=== PATIENT | male | born 1930 | race Caucasian/White ===

== ENCOUNTER 2019-11-21 06:35 | Emergency (ER) | payer MEDICARE, BC ==
--- NOTE | 2019-11-21 07:25 | EDM.PDOC ---
<WileyJames D - Last Filed: 11/21/19 08:27> ED HPI GENERAL MEDICAL PROBLEM - General Chief Complaint: General Stated Complaint: L facial/body numbness Time Seen by Provider: 11/21/19 07:00 Source of Information: Reports: Patient History Limitations: Reports: No Limitations - History of Present Illness INITIAL COMMENTS - FREE TEXT/NARRATIVE: Patient presents with pain that started in left oriental orthodox, extending around left ear and down left cheek, face, neck, left anterior chest to upper left abdomen. It awoke him at 0300 this morning (about 4 hours ago) and was new today. For the past two months he has had a slowly worsening hoarseness/restriction in his throat and feeling of something constricting around his neck. He says he had [place] Palsy on the right side several years ago but this doesn't feel very much like that. Five years ago he had [place] and CABG. 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 Left Face/Facial Pain Score (Numeric/FACES): 6 - Related Data Allergies Allergy/AdvReac Type Severity Reaction Status Date / Time No Known Drug Allergies Allergy Cannot Verified 11/21/19 06:55 Remember Home Meds: Home Meds Allopurinol [Zyloprim] 200 mg PO DAILY 11/21/19 [History] Aspirin [Halfprin] 81 mg PO DAILY 11/21/19 [History] FLUoxetine HCl [Prozac] 20 mg PO DAILY 11/21/19 [History] Fluticasone Propionate [Flonase] 1 spray BOOM DAILY 11/21/19 [History] LORazepam [Ativan] 0.25 mg PO BID PRN 11/21/19 [History] Meloxicam [Mobic] 7.5 mg PO DAILY 11/21/19 [History] Metoprolol Tartrate [Lopressor] 12.5 mg PO BID 11/21/19 [History] Multivit,Calc,Mins/Iron/Folic [Thera-M] 1 tab PO DAILY 11/21/19 [History] Naproxen Sodium [Aleve] 220 mg PO BID PRN 11/21/19 [History] Pravastatin [Pravachol] 10 mg PO DAILY 11/21/19 [History] miSOPROStoL [Misoprostol] 200 mg PO DAILY 11/21/19 [History] ED ROS GENERAL - Review of Systems Review Of Systems: See Below Constitutional: Denies: Fever, Chills, Malaise, Weakness HEENT: Denies: Ear Pain, Hearing Loss, Vision Change Respiratory: Reports: Shortness of Breath (with activity; slowly worsening over the past several weeks). Denies: Cough Cardiovascular: Reports: Chest Pain (radiating from left oriental orthodox (see HPI)). Denies: Lightheadedness, Syncope GI/Abdominal: Denies: Abdominal Pain, Diarrhea, Vomiting : Reports: No Symptoms Musculoskeletal: Reports: Neck Pain, Other (has had some chronic intermittent tingling of left arm and shoulder) Skin: Denies: Cyanosis, Jaundice, Mottled, Pallor, Diaphoresis Neurological: Reports: Headache (this morning but the headache part of the symptoms is better). Denies: Confusion, Dizziness, Seizure, Syncope, Trouble Speaking, Difficulty Walking Psychiatric: Denies: Agitation, Anxiety, Confusion ED EXAM, GENERAL - Physical Exam Exam: See Below Exam Limited By: No Limitations General Appearance: Alert, WD/WN, No Apparent Distress Eye Exam: Bilateral Eye: EOMI, Normal Inspection (full visual el bilat), PERRL Ears: Normal External Exam, Hearing Grossly Normal Nose: Normal Inspection, No Blood Throat/Mouth: Normal Inspection, Normal Lips, Normal Voice, No Airway Compromise , Other (tender to palpation of left oriental orthodox, cheek and preauricular regions) Head: Atraumatic, Normocephalic Neck: Normal Inspection. No: Carotid Bruit Respiratory/Chest: No Respiratory Distress, Lungs Clear, Normal Breath Sounds, No Accessory Muscle Use, Other (tender to palpation nonfocally left anterior). No: Crackles, Rales, Rhonchi, Wheezing, Stridor Cardiovascular: Regular Rate, Rhythm, Systolic Murmur GI/Abdominal: Normal Bowel Sounds, Soft, Non-Tender, No Organomegaly Back Exam: Normal Inspection, Full Range of Motion. No: CVA Tenderness (L), CVA Tenderness (R) Extremities: Normal Inspection, Normal Range of Motion, Other (5/5 symmetric strength of hand pullman conductor, arms, straight-leg raise, plantar/dorsiflexion) Neurological: Alert, Oriented, CN II-XII Intact, Normal Cognition, No Motor/ Sensory Deficits Psychiatric: Normal Affect, Normal Mood Skin Exam: Warm, Dry, Intact, Normal Color, No Rash Course - Vital Signs Last Recorded V/S: Last Vital Signs Temp 98 F 11/21/19 09:26 Pulse 71 11/21/19 09:26 Resp 17 11/21/19 09:26 BP 142/81 H 11/21/19 09:26 Pulse Ox 96 11/21/19 09:26 - Orders/Labs/Meds Orders: Active Orders 24 hr Category Date Time Status Sodium Chloride 0.9% [Normal Saline] 1,000 ml Med 11/21/19 09:30 Active IV ASDIRECTED Medication Orders Sodium Chloride (Normal Saline) 1,000 mls @ 50 mls/hr IV ASDIRECTED LARRY Stop: 11/25/19 09:27 Last Admin: 11/21/19 09:28 Dose: 50 mls/hr Labs: Laboratory Tests 11/21/19 11/21/19 11/21/19 Range/Units 07:20 07:30 07:30 WBC 9.33 (5.00-10.00) 10^3/uL RBC 4.76 (4.50-6.00) 10^6/uL Hgb 14.4 (13.0-17.0) g/dL Hct 44.4 (40.0-52.0) % MCV 93.3 H (82.0-92.0) fL MCH 30.3 (27.0-31.0) pg MCHC 32.4 (32.0-36.0) g/dL RDW 13.6 (11.5-14.5) % Plt Count 242 (150-400) 10^3/uL MPV 9.9 (7.4-10.4) fL Immature Gran % (Auto) 0.3 (0.0-5.0) % Neut % (Auto) 70.6 H (50.0-70.0) % Lymph % (Auto) 17.0 L (20.0-40.0) % [place] % (Auto) 8.9 H (2.0-8.0) % Eos % (Auto) 2.8 (1.0-3.0) % Baso % (Auto) 0.4 (0.0-1.0) % Neut # (Auto) 6.58 (2.50-7.00) 10^3/uL Lymph # (Auto) 1.59 (1.00-4.00) 10^3/uL [place] # (Auto) 0.83 H (0.10-0.80) 10^3/uL Eos # (Auto) 0.26 (0.10-0.30) 10^3/uL Baso # (Auto) 0.04 (0.00-0.10) 10^3/uL Immature Gran # (Auto) 0.03 (0.00-0.50) 10^3/uL ESR 7 (0-15) mm/hr Sodium 139 (136-145) mmol/L Potassium 4.0 (3.3-5.3) mmol/L Chloride 104 (98-115) mmol/L Carbon Dioxide 23.0 (21.0-32.0) mmol/L Anion Gap 16.0 H (5-15) mmol/L BUN 28 H (6-25) mg/dL Creatinine 1.28 H (0.51-1.17) mg/dL Est Cr Clr Drug Dosing 40.66 mL/min Estimated GFR (MDRD) 53 mL/min Glucose 150 H (75 - 99) mg/dL Calcium 8.3 L (8.7-10.3) mg/dL Troponin I 0.10 H* (0.00-0.070) ng/mL C-Reactive Protein 0.2 (0.0-0.9) mg/dL 11/21/19 Range/Units 10:30 WBC (5.00-10.00) 10^3/uL RBC (4.50-6.00) 10^6/uL Hgb (13.0-17.0) g/dL Hct (40.0-52.0) % MCV (82.0-92.0) fL MCH (27.0-31.0) pg MCHC (32.0-36.0) g/dL RDW (11.5-14.5) % Plt Count (150-400) 10^3/uL MPV (7.4-10.4) fL Immature Gran % (Auto) (0.0-5.0) % Neut % (Auto) (50.0-70.0) % Lymph % (Auto) (20.0-40.0) % [place] % (Auto) (2.0-8.0) % Eos % (Auto) (1.0-3.0) % Baso % (Auto) (0.0-1.0) % Neut # (Auto) (2.50-7.00) 10^3/uL Lymph # (Auto) (1.00-4.00) 10^3/uL [place] # (Auto) (0.10-0.80) 10^3/uL Eos # (Auto) (0.10-0.30) 10^3/uL Baso # (Auto) (0.00-0.10) 10^3/uL Immature Gran # (Auto) (0.00-0.50) 10^3/uL ESR (0-15) mm/hr Sodium (136-145) mmol/L Potassium (3.3-5.3) mmol/L Chloride (98-115) mmol/L Carbon Dioxide (21.0-32.0) mmol/L Anion Gap (5-15) mmol/L BUN (6-25) mg/dL Creatinine (0.51-1.17) mg/dL Est Cr Clr Drug Dosing mL/min Estimated GFR (MDRD) mL/min Glucose (75 - 99) mg/dL Calcium (8.7-10.3) mg/dL Troponin I 0.11 H* (0.00-0.070) ng/mL C-Reactive Protein (0.0-0.9) mg/dL Meds: Medications Generic Name Dose Route Start Last Admin Trade Name Freq PRN Reason Stop Dose Admin Sodium Chloride 1,000 mls @ 50 mls/hr 11/21/19 09:30 11/21/19 09:28 Normal Saline IV 11/25/19 09:27 50 mls/hr ASDIRECTED LARRY Administration Discontinued Medications Generic Name Dose Route Start Last Admin Trade Name Freq PRN Reason Stop Dose Admin Aspirin 324 mg 11/21/19 08:12 11/21/19 08:14 Aspirin PO 11/21/19 08:13 324 mg ONETIME ONE Administration Aspirin Confirm 11/21/19 08:13 11/21/19 08:51 Aspirin Administered 11/21/19 08:14 Not Given Dose 324 mg .ROUTE .STK-MED ONE Sodium Chloride Confirm 11/21/19 09:09 11/21/19 09:29 Normal Saline Administered 11/21/19 09:10 Not Given Dose 1,000 mls @ as directed .ROUTE .STK-MED ONE - Re-Assessments/Exams Free Text/Narrative Re-Assessment/Exam: 11/21/19 08:13 Lab just called with troponin of 0.10. Patient says this doesn't feel very much like his past [place] and he isn't having any chest pain but he did have some pain and tightness in his chest this morning while he was in the shower before coming to ER. EKG is okay. CRP normal. 11/21/19 08:[address] Kerr, hospitalist at [facility], who accepted for transfer, however they tell me that there may be a delay for bed availability and we need to wait for the call. Dr. Kerr advised nothing besides the aspirin at this time but should start a heparin drip if he has chest pain or a serial troponin (at 3 hours) is trending up. Handing patient over to MARLENY Yarbrough at this time. Departure - Departure Disposition: DC/Tfer to Acute Hospital 02 Condition: Good Clinical Impression: Elevated troponin, Temporal pain, Neck pain - Discharge Information Referrals: Iona Jones PA-C [Primary Care Provider] - Forms: ED Department Discharge Sepsis Event Note - Evaluation Sepsis Screening Result: No Definite Risk - Focused Exam Vital Signs: Vital Signs Temp Pulse Resp BP Pulse Ox 11/21/19 09:26 98 F 71 17 142/81 H 96 11/21/19 06:51 97.7 F 69 18 141/67 H 94 L Date Exam was Performed: 11/21/19 Time Exam was Performed: 08:27 <Cuate Michael D - Last Filed: 11/21/19 12:05> ED EXAM, GENERAL - Physical Exam Exam: See Below Exam Limited By: No Limitations General Appearance: Alert, WD/WN, No Apparent Distress Nose: Normal Inspection Throat/Mouth: Normal Inspection, Normal Lips, Normal Voice, No Airway Compromise Head: Atraumatic, Normocephalic Neck: Normal Inspection, Supple, Non-Tender Respiratory/Chest: No Respiratory Distress, Lungs Clear, Normal Breath Sounds Cardiovascular: Regular Rate, Rhythm GI/Abdominal: Soft Back Exam: Normal Inspection Extremities: Normal Inspection Neurological: Alert, Oriented, No Motor/Sensory Deficits Psychiatric: Normal Affect, Normal Mood Skin Exam: Warm, Dry, Intact Lymphatic: No Adenopathy Course - Re-Assessments/Exams Free Text/Narrative Re-Assessment/Exam: 11/21/19 11:28 Patient continues to report that he feels quite well is not experiencing significant chest pain at this time. I did repeat his troponin 3 hours after initial and troponin is 0.11. Unchanged from prior. CT scans of the head and neck are unremarkable for any mass or tumor. Patient now has a room available and will continue to proceed with transfer to [facility]. Departure - Departure Time of Disposition: 11:45 Condition: Good Sepsis Event Note - Focused Exam Date Exam was Performed: 11/21/19 Time Exam was Performed: 12:02 - Assessment/Plan Assessment:: Mild troponin elevation. History of prior CABG. History of aortic valve replacement.. Plan: Patient will be transferred by ground ambulance to [facility] in [place] for further workup. Patient in stable condition. Patient will likely need further workup involving carotid ultrasound.
[2019-11-21] MEDS ORDERED: Aspirin 81 MG Tab.Chew PO ONE (08:12)
[2019-11-21] MEDS ORDERED: Aspirin 81 MG Tab.Chew ONE (08:13)
[2019-11-21] MEDS ORDERED: Sodium Chloride 0.9% 1,000 ML ONE (09:09)
[2019-11-21] MEDS ORDERED: Sodium Chloride 0.9% 1,000 ML IV SCH (09:30)
--- NOTE | 2019-11-21 10:36 | CT ---
[id number] CT/CT Head WO IV EXAM: NONCONTRAST HEAD CT INDICATION: DIFFICULTY SWALLOWING FOR 1 MONTH. COMPARISON: August 31, 2006. DISCUSSION: Progression of mild to moderate generalized atrophy. Progression of mild to moderate multifocal white matter hypoattenuation is nonspecific, but generally ascribed to chronic small vessel ischemia. No mass effect or midline shift. No acute hemorrhage or extra-axial fluid collection. No acute territorial infarct is identified. A limited look at the orbits and paranasal sinuses is unremarkable. IMPRESSION: 1. No acute findings. Wade Camarena MD 11/21/19 1034 Thank you for allowing us to participate in the care of your patient.
--- NOTE | 2019-11-21 10:41 | CT ---
[id number] CT/CT Neck Soft Tissue WO IV EXAM: SOFT TISSUE NECK CT WITHOUT CONTRAST INDICATION: DIFFICULTY SWALLOWING FOR 1 MONTH. COMPARISON: None. DISCUSSION: The parotid, submandibular and thyroid glands are normal in appearance. Atherosclerotic plaque in the aorta and its major branches including the carotid arteries. The airway and digestive tract mucosa are unremarkable. No lymphadenopathy. The imaged skull base is unremarkable. There are changes of prior sternotomy. Partially calcified densities in the mediastinum along the left aspect of the main pulmonary artery and the ventral margin of the aorta may represent postsurgical material/fat necrosis, but are nonspecific. The imaged upper chest is otherwise unremarkable. Scattered degenerative changes in the spine. Slight C5-C6 spondylolisthesis. IMPRESSION: 1. No definite explanation for difficulty swallowing. Wade Camarena MD 11/21/19 1041 Thank you for allowing us to participate in the care of your patient.
== END 2019-11-21 11:55 ==
LOC: KA.ED 06:35
DX: R51 Headache (principal); M54.2 Cervicalgia; R79.89 Other specified abnormal findings of blood chemistry; Z79.82 Long term (current) use of aspirin; Z79.899 Other long term (current) drug therapy; Z95.1 Presence of aortocoronary bypass graft; Z95.4 Presence of other heart-valve replacement
CPT/HCPCS: 36415; 70450; 70490; 80048; 84484; 85025; 85651; 86140; 93005; 99285; A9270; J7030; 99284

== ENCOUNTER 2020-01-12 19:32 | Emergency (ER) | payer MEDICARE, BC ==
--- NOTE | 2020-01-12 20:02 | EDM.PDOC ---
ED HPI GENERAL MEDICAL PROBLEM - General Chief Complaint: Neuro Symptoms/Deficits Stated Complaint: NUMBNESS ON HIS FACE Time Seen by Provider: 01/12/20 19:40 Source of Information: Reports: Patient History Limitations: Reports: No Limitations - History of Present Illness INITIAL COMMENTS - FREE TEXT/NARRATIVE: Patient is an 89-year-old gentleman who presents to emergency department via private vehicle for complaint of numbness and tingling to his left episcopal, face and neck. Had similar symptoms one month ago, seen here in the emergency department, diagnosed with non-STEMI [place], and transferred to [facility]. At that time patient was found to have carotid stenosis and it was recommended that he have an endarterectomy. Patient is not scheduled for next vascular appoi ntment until February. Blockage was said to be 80% on the left and 50% on the right. Patient does have a history of coronary artery bypass surgery 7 years ago. At this time, patient's daughter is present and is also a good historian. She also thinks that it may be anxiety because her father has not been able to see his due to the Covid crisis. Patient denies chest pain, shortness of breath, nausea, vomiting, diarrhea, fever, covid exposure, syncope, dizziness, blurry vision, occult he swallowing, or neck stiffness. Onset: Today Onset Time: 15:00 Duration: Hour(s): Location: Reports: Head, Face Quality: Reports: Other Severity: Mild Improves with: Reports: None Worsens with: Reports: None Context: Denies: Trauma Associated Symptoms: Reports: No Other Symptoms. Denies: Chest Pain, Cough, Diaphoresis, Fever/Chills, Headaches, Nausea/Vomiting, Seizure, Shortness of Breath, Syncope - Related Data Allergies Allergy/AdvReac Type Severity Reaction Status Date / Time No Known Drug Allergies Allergy Cannot Verified 11/21/19 06:55 Remember Home Meds: Home Meds Allopurinol [Zyloprim] 200 mg PO DAILY 11/21/19 [History] Aspirin [Halfprin] 81 mg PO DAILY 11/21/19 [History] FLUoxetine HCl [Prozac] 20 mg PO DAILY 11/21/19 [History] Fluticasone Propionate [Flonase] 1 spray BOOM DAILY 11/21/19 [History] LORazepam [Ativan] 0.25 mg PO BID PRN 11/21/19 [History] Meloxicam [Mobic] 7.5 mg PO DAILY 11/21/19 [History] Metoprolol Tartrate [Lopressor] 12.5 mg PO BID 11/21/19 [History] Multivit,Calc,Mins/Iron/Folic [Thera-M] 1 tab PO DAILY 11/21/19 [History] Naproxen Sodium [Aleve] 220 mg PO BID PRN 11/21/19 [History] Pravastatin [Pravachol] 10 mg PO DAILY 11/21/19 [History] miSOPROStoL [Misoprostol] 200 mg PO DAILY 11/21/19 [History] Past Medical History HEENT History: Reports: Hard of Hearing 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 Respiratory History: Reports: None Genitourinary History: Reports: None, Other (See Below) Neurological History: Reports: None Psychiatric History: Reports: Anxiety, Depression Endocrine/Metabolic History: Reports: Diabetes, Type II, Obesity/BMI 30+ Oncologic (Cancer) History: Reports: None Dermatologic History: Reports: None - Infectious Disease History Infectious Disease History: Reports: None - Past Surgical History Cardiovascular Surgical History: Reports: Coronary Artery Bypass GI Surgical History: Reports: Appendectomy, Cholecystectomy, Other (See Below) Other GI Surgeries/Procedures: umbilibal hernia Musculoskeletal Surgical History: Reports: Knee Replacement Social & Family History - Caffeine Use Caffeine Use: Reports: Soda, Other ED ROS GENERAL - Review of Systems Review Of Systems: Comprehensive ROS is negative, except as noted in HPI. Constitutional: Reports: No Symptoms HEENT: Reports: No Symptoms Respiratory: Reports: No Symptoms Cardiovascular: Reports: No Symptoms Endocrine: Reports: No Symptoms GI/Abdominal: Reports: No Symptoms : Reports: No Symptoms Musculoskeletal: Reports: No Symptoms Skin: Reports: No Symptoms Neurological: Reports: Numbness (Left face) Psychiatric: Reports: Anxiety Hematologic/Lymphatic: Reports: No Symptoms Immunologic: Reports: No Symptoms ED EXAM, NEURO - Physical Exam Exam: See Below Exam Limited By: No Limitations General Appearance: Alert, WD/WN, No Apparent Distress, Anxious Eye Exam: Bilateral Eye: Normal Inspection Nose: Normal Inspection, Normal Mucosa, No Blood Throat/Mouth: Normal Inspection, Normal Oropharynx, No Airway Compromise Head Exam: Atraumatic, Normocephalic Neck: Normal Inspection, Supple, Non-Tender, Full Range of Motion Respiratory/Chest: No Respiratory Distress, Lungs Clear, Normal Breath Sounds, No Accessory Muscle Use, Chest Non-Tender Cardiovascular: Regular Rate, Rhythm, Systolic Murmur GI/Abdominal: Normal Bowel Sounds, Soft, Non-Tender, No Organomegaly, No Abnormal Bruit Neurological: Alert, Normal Mood/Affect, Normal Dorsiflexion, Normal Plantar Flexion, Oriented x 3, Abnormal Sensation (Left temporal and facial extending into left lateral neck). No: Abnormal Motor Back Exam: Normal Inspection Extremities: Normal Inspection, No Pedal Edema Psychiatric: Anxious Skin Exam: Warm, Dry, Intact, Normal Color, No Rash Course - Orders/Labs/Meds Orders: Active Orders 24 hr Category Date Time Status EKG Documentation Completion [RC] ASDIRECTED Care 01/12/20 19:50 Ordered EKG 12 Lead [EK] Stat Ther 01/12/20 19:48 Ordered Labs: Laboratory Tests 01/12/20 01/12/20 01/12/20 Range/Units 20:18 20:18 20:18 WBC 9.59 (5.00-10.00) 10^3/uL RBC 4.46 L (4.50-6.00) 10^6/uL Hgb 13.4 (13.0-17.0) g/dL Hct 41.7 (40.0-52.0) % MCV 93.5 H (82.0-92.0) fL MCH 30.0 (27.0-31.0) pg MCHC 32.1 (32.0-36.0) g/dL RDW 14.0 (11.5-14.5) % Plt Count 224 (150-400) 10^3/uL MPV 9.4 (7.4-10.4) fL Immature Gran % (Auto) 0.1 (0.0-5.0) % Neut % (Auto) 72.2 H (50.0-70.0) % Lymph % (Auto) 16.0 L (20.0-40.0) % [place] % (Auto) 8.1 H (2.0-8.0) % Eos % (Auto) 3.3 H (1.0-3.0) % Baso % (Auto) 0.3 (0.0-1.0) % Neut # (Auto) 6.92 (2.50-7.00) 10^3/uL Lymph # (Auto) 1.53 (1.00-4.00) 10^3/uL [place] # (Auto) 0.78 (0.10-0.80) 10^3/uL Eos # (Auto) 0.32 H (0.10-0.30) 10^3/uL Baso # (Auto) 0.03 (0.00-0.10) 10^3/uL Immature Gran # (Auto) 0.01 (0.00-0.50) 10^3/uL PT 9.7 (9.2-11.2) SEC INR 1.0 (0.9-1.1) APTT 26.1 (22.8-31.4) SEC Sodium 145 (136-145) mmol/L Potassium 4.1 (3.3-5.3) mmol/L Chloride 104 (98-115) mmol/L Carbon Dioxide 25.9 (21.0-32.0) mmol/L Anion Gap 19.2 H (5-15) mmol/L BUN 19 (6-25) mg/dL Creatinine 1.21 H (0.51-1.17) mg/dL Est Cr Clr Drug Dosing TNP Estimated GFR (MDRD) 57 mL/min Glucose 193 H (75 - 99) mg/dL Calcium 8.5 L (8.7-10.3) mg/dL Total Bilirubin 0.4 (0.2-1.0) mg/dL AST 20 (15-37) U/L ALT 28 (12-78) U/L Alkaline Phosphatase 86 (46-116) IU/L Troponin I 0.04 (0.00-0.070) ng/mL C-Reactive Protein 0.7 (0.0-0.9) mg/dL Total Protein 6.6 (6.4-8.2) g/dL Albumin 3.29 (3.00-4.80) g/dL - Radiology Interpretation Free Text/Narrative:: CT head without contrast shows no acute intracranial process - Re-Assessments/Exams Free Text/Narrative Re-Assessment/Exam: 01/12/20 21:33 Patient afebrile, vital signs stable, symptoms mostly resolved. Daughter at bedside. Discussed case with Mayda Botello, clinician from [place]. After discussion was felt patient would be allowed to go home this evening and follow- up at the clinic tomorrow. Departure - Departure Time of Disposition: 21:34 Disposition: Home, Self-Care 01 Condition: Good Clinical Impression: Temporal pain, Anxiety - Discharge Information Instructions: Generalized Anxiety Disorder, Adult Referrals: Alejandra Kruse MD [Primary Care Provider] - Forms: ED Department Discharge Additional Instructions: Follow-up tomorrow at [facility]. Return to emergency department sooner if symptoms continue or worsen. - My Orders Last 24 Hours: My Active Orders 01/12/20 19:48 EKG 12 Lead [EK] Stat 01/12/20 19:50 EKG Documentation Completion [RC] ASDIRECTED - Assessment/Plan Last 24 Hours: My Active Orders 01/12/20 19:48 EKG 12 Lead [EK] Stat 01/12/20 19:50 EKG Documentation Completion [RC] ASDIRECTED Assessment:: Anxiety
[2020-01-12 20:41] LABS: PTT,PARTIAL THROMBOPLSTIN TIME 26.1 SEC (22.8-31.4)
--- NOTE | 2020-01-12 20:41 | CT ---
[id number] CT/CT Head WO IV EXAM: CT Head WO IV CLINICAL DATA: FACIAL NUMBNESS COMPARISON STUDY: 11/21/2019. FINDINGS: No intracranial hemorrhage, extra-axial fluid collection, mass, or acute ischemia. Generalized parenchymal atrophy with scattered areas of nonspecific white matter disease, commonly seen as sequela of chronic microvascular ischemia. Soft tissues are unremarkable. Paranasal sinuses and mastoid air cells are clear. IMPRESSION: No acute intracranial findings. Kirill Savage DO 01/12/20 1039 Thank you for allowing us to participate in the care of your patient.
--- NOTE | 2020-01-12 20:42 | CR ---
[id number] RAD/RAD Chest PA or AP 1V EXAM: RAD Chest PA or AP 1V INDICATION: FACIAL NUMBNESS COMPARISON: None. DISCUSSION: Median sternotomy wires. Cardiomediastinal silhouette is stable in size and contour. No infiltrate, effusion, pneumothorax, or edema. IMPRESSION: No acute cardiopulmonary abnormality. Kirill Savage DO 01/12/20 2041 Thank you for allowing us to participate in the care of your patient.
[2020-01-12 20:49] LABS: ANION GAP 19.2 mmol/L (5-15); CHLORIDE,CL 104 mmol/L (98-115); SODIUM,NA 145 mmol/L (136-145)
== END 2020-01-12 21:50 | disposition home or self-care (01) ==
LOC: KA.ED 19:32
DX: R51 Headache (principal); F41.9 Anxiety disorder, unspecified; F32.9 Major depressive disorder, single episode, unspecified; E11.9 Type 2 diabetes mellitus without complications; E66.9 Obesity, unspecified; Z68.29 Body mass index [BMI] 29.0-29.9, adult; Z79.899 Other long term (current) drug therapy; Z79.82 Long term (current) use of aspirin
CPT/HCPCS: 36415; 70450; 71045; 80053; 84484; 85025; 85610; 85730; 86140; 93005; 99284; 99284-25

== ENCOUNTER 2020-09-03 08:29 | Emergency (ER) | payer MEDICARE, BC ==
--- NOTE | 2020-09-03 09:28 | EDM.PDOC ---
ED HPI GENERAL MEDICAL PROBLEM - General Chief Complaint: General Stated Complaint: RT LEG WEAKNESS, knee pain/swelling Time Seen by Provider: 09/03/20 09:00 Source of Information: Reports: Patient History Limitations: Reports: No Limitations - History of Present Illness INITIAL COMMENTS - FREE TEXT/NARRATIVE: 89-year-old male presents to the emergency room with complaints of right knee pain and swelling and difficulty weightbearing. He called the clinic this morning and told them he was experiencing weakness in his right leg and cannot walk and they were concerned that this might be possibly a stroke. He is not having any headache, difficulty with speech, no drooping of face no upper extremity or lower extremity weakness. He reports that he is having difficulty weightbearing due to the pain and swelling in his right knee. He has had his left knee replaced in the past by Dr. Monique is doing well. He has swelling in the right knee. It is painful to touch or move. He has not fallen. He was brought in by his sister for further evaluation. He denies any numbness or tingling complaints. No radicular pain. Onset Date: 09/02/20 Duration: Day(s):, Constant Location: Reports: Lower Extremity, Right Quality: Reports: Ache Severity: Moderate Improves with: Reports: Rest Worsens with: Reports: Movement Associated Symptoms: Denies: Confusion, Chest Pain, Headaches, Shortness of Breath, Weakness right leg Pain Score (Numeric/FACES): 7 - Related Data Allergies Allergy/AdvReac Type Severity Reaction Status Date / Time No Known Drug Allergies Allergy Cannot Verified 09/03/20 08:40 Remember Home Meds: Home Meds Allopurinol [Zyloprim] 200 mg PO DAILY 11/21/19 [History] FLUoxetine HCl [Prozac] 20 mg PO DAILY 11/21/19 [History] Fluticasone Propionate [Flonase] 1 spray BOOM DAILY 11/21/19 [History] LORazepam [Ativan] 0.25 mg PO BID PRN 11/21/19 [History] Metoprolol Tartrate [Lopressor] 25 mg PO BID 11/21/19 [History] Multivit,Calc,Mins/Iron/Folic [Thera-M] 1 tab PO DAILY 11/21/19 [History] Furosemide 20 mg PO DAILY PRN 01/13/20 [History] metFORMIN [Glucophage XR] 500 mg PO DAILY 01/13/20 [History] Aspirin 325 mg PO DAILY 09/03/20 [History] Rosuvastatin Calcium [Crestor] 40 mg PO DAILY 09/03/20 [History] Past Medical History HEENT History: Reports: Hard of Hearing 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 Other Cardiovascular History: Pt states last time he was hospitalized at [facility] 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, "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." Respiratory History: Reports: Other (See Below) Other Respiratory History: patient states chronic shortness of breath for the last 2 years Gastrointestinal History: Reports: None Genitourinary History: Reports: None, Other (See Below) Neurological History: Reports: None Psychiatric History: Reports: Anxiety, Depression Endocrine/Metabolic History: Reports: Diabetes, Type II, Obesity/BMI 30+ Hematologic History: Reports: None Immunologic History: Reports: None Oncologic (Cancer) History: Reports: None Dermatologic History: Reports: None - Infectious Disease History Infectious Disease History: Reports: None - Past Surgical History Cardiovascular Surgical History: Reports: Coronary Artery Bypass GI Surgical History: Reports: Appendectomy, Cholecystectomy, Other (See Below) Other GI Surgeries/Procedures: umbilibal hernia Musculoskeletal Surgical History: Reports: Knee Replacement Social & Family History - Tobacco Use Tobacco Use Status *Q: Never Tobacco User - Caffeine Use Caffeine Use: Reports: None - Recreational Drug Use Recreational Drug Use: No ED ROS GENERAL - Review of Systems Review Of Systems: See Below Constitutional: Reports: No Symptoms HEENT: Reports: No Symptoms Respiratory: Reports: No Symptoms Cardiovascular: Reports: No Symptoms Endocrine: Reports: No Symptoms GI/Abdominal: Reports: No Symptoms : Reports: No Symptoms Musculoskeletal: Reports: Joint Pain (right knee), Joint Swelling (right knee). Denies: Back Pain Skin: Reports: No Symptoms Neurological: Reports: No Symptoms ED EXAM, GENERAL - Physical Exam Exam: See Below Exam Limited By: No Limitations General Appearance: Alert, WD/WN, No Apparent Distress Ears: Hearing Grossly Normal Nose: Normal Inspection Throat/Mouth: Normal Voice, No Airway Compromise Head: Atraumatic, Normocephalic Neck: Normal Inspection Respiratory/Chest: No Respiratory Distress Cardiovascular: Normal Peripheral Pulses Peripheral Pulses: 1+: Dorsalis Pedis (R) Back Exam: Normal Inspection Extremities: Normal Capillary Refill, Joint Swelling (+1 effusion), Limited Range of Motion (0-125), Other (1+ effusion of the right knee passive motion is 0 to about 120 degrees. He has slight opening with valgus stress at 30 degrees of flexion. He has tenderness across the medial joint line. There is crepitation with gentle passive motion.) Neurological: Alert, Oriented, CN II-XII Intact, No Motor/Sensory Deficits, Abnormal Gait (Antalgic gait) Psychiatric: Normal Affect, Normal Mood Skin Exam: Warm, Dry, Intact, Normal Color, No Rash Lymphatic: No Adenopathy ED GENERAL MEDICAL PROCEDURES - Additional/Other Procedure(s) Other (Free Text) Procedure(s): Right knee was prepped with ChloraPrep. Right knee was then injected with a 21- gauge needle intra-articularly from the superior lateral capsule was injected with 40 mg of Kenalog and 5 cc of 1% Xylocaine without difficulty. Band-Aid was placed over the portal site patient tolerated procedure well. Course - Vital Signs Last Recorded V/S: Last Vital Signs Temp 97 F 09/03/20 09:47 Pulse 61 09/03/20 09:47 Resp 16 09/03/20 09:47 BP 149/61 H 09/03/20 09:47 Pulse Ox 95 09/03/20 09:47 - Orders/Labs/Meds Meds: Medications Discontinued Medications Generic Name Dose Route Start Last Admin Trade Name Marcia PRN Reason Stop Dose Admin Lidocaine HCl 5 ml 09/03/20 09:38 09/03/20 09:55 Lidocaine 1% 5 Ml Sdv INJECT 09/03/20 09:39 5 ml ONETIME ONE Administration Triamcinolone Acetonide 40 mg 09/03/20 09:37 09/03/20 09:55 Triamcinolone Acetonide 40 Mg/Ml 1 Ml Sdv INJECT 09/03/20 09:38 40 mg ONETIME ONE Administration - Radiology Interpretation Free Text/Narrative:: X-ray bilateral AP standing Findings: There is 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 There is soft tissue swelling consistent with a knee effusion. 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 Impression: As above - Re-Assessments/Exams Free Text/Narrative Re-Assessment/Exam: 09/03/20 10:02 Patient's knee was injected today with 5 cc of lidocaine and 40 of Kenalog after sterile prep. Patient tolerated procedure well. He already noticed improvement with his knee pain with the injection. Departure - Departure Time of Disposition: 10:20 Disposition: Home, Self-Care 01 Condition: Good Clinical Impression: Effusion of knee joint right Degenerative joint disease of right knee Qualifiers: Osteoarthritis type: primary Qualified Code(s): M17.11 - Unilateral primary osteoarthritis, right knee - Discharge Information Referrals: Alejandra Kruse MD [Primary Care Provider] - Forms: ED Department Discharge Sepsis Event Note (ED) - Evaluation Sepsis Screening Result: No Definite Risk - Focused Exam Vital Signs: Vital Signs Temp Pulse Resp BP Pulse Ox 09/03/20 09:47 97 F 61 16 149/61 H 95 09/03/20 09:19 97 F 59 L 16 116/69 96 09/03/20 09:04 60 16 114/63 95 09/03/20 08:46 62 16 124/59 L 94 L 09/03/20 08:34 97.2 F 67 16 172/91 H 97 - Assessment/Plan Assessment:: Right knee DJD with [id number] articulation medially Right knee effusion Left total knee arthroplasty Plan: 1. Knee was injected today with 40 of Kenalog and 5 cc of lidocaine. Patient tolerated seizure well and noticed immediate improvement with the knee injection. 2. He could have this repeated as early as 3 months if this is gives him good long-lasting relief.. 3. Patient could consider total knee arthroplasty for his end-stage osteoarthritis right knee for definitive management. 4. Recommend follow-up with orthopedics for further injections or to discuss surgical intervention for his right knee DJD.
--- NOTE | 2020-09-03 09:44 | CR ---
[id number] RAD/RAD Knee Bilateral Standing 1V Exam: RAD Knee Bilateral Standing 1V Clinical Data: KNEE PAIN COMPARISON: NO PREVIOUS SIMILAR EXAM IS AVAILABLE FINDINGS: Significant degenerative changes of the right knee are seen A left knee prosthesis is identified IMPRESSION: SIGNIFICANT DEGENERATIVE CHANGE ON RIGHT Arun Dunne MD 09/03/20 [id number] Thank you for allowing us to participate in the care of your patient.
[2020-09-03] MEDS: Triamcinolone Acetonide 40 MG/ML 1 ML SDV INJECT ONE (09:55)
== END 2020-09-03 10:20 | disposition home or self-care (01) ==
LOC: KA.ED 08:29
DX: M17.11 Unilateral primary osteoarthritis, right knee (principal); M25.461 Effusion, right knee; E11.9 Type 2 diabetes mellitus without complications; E66.9 Obesity, unspecified; Z68.30 Body mass index [BMI] 30.0-30.9, adult; Z79.84 Long term (current) use of oral hypoglycemic drugs; Z79.82 Long term (current) use of aspirin; Z79.899 Other long term (current) drug therapy
CPT/HCPCS: 20610; 73565; 82962; 99283; 99283-25; J3301

== ENCOUNTER 2021-08-12 17:29 | Inpatient (IN) | payer MEDICARE, BC ==
[2021-08-12] MEDS ORDERED: Sodium Chloride 0.9% 1,000 ML IV ONE (17:47)
[2021-08-12] MEDS ORDERED: Albuterol/Ipratropium 3.0-0.5 MG/3 ML Neb Soln NEB ONE (18:30)
[2021-08-12 19:22] LABS: ANION GAP 17.4 mmol/L (5-15)
[2021-08-12] MEDS ORDERED: Sodium Chloride 0.9% 1,000 ML IV SCH (22:15)
[2021-08-12] MEDS ORDERED: Fluticasone NASAL Spray 16 GM Bottle NAS PRN (22:26)
[2021-08-12] MEDS ORDERED: LORazepam 0.5 MG Tab PO PRN (22:27)
[2021-08-12] MEDS ORDERED: cefTRIAXone 2 GM Vial IVPUSH ONE (22:30)
[2021-08-12] MEDS: Sodium Chloride 0.9% 10 ML Syringe FLUSH PRN (22:39)
[2021-08-12] MEDS: Albuterol/Ipratropium 3.0-0.5 MG/3 ML Neb Soln NEB PRN (23:53)
[2021-08-13] MEDS: Albuterol/Ipratropium 3.0-0.5 MG/3 ML Neb Soln NEB PRN ×3 (06:30→21:30)
[2021-08-13] MEDS: guaiFENesin/Dextromethorphan 100-10 MG/5 ML Soln 5 ML Cup PO PRN (07:01)
[2021-08-13 07:58] LABS: ANION GAP 16.8 mmol/L (5-15)
[2021-08-13] MEDS ORDERED: Clopidogrel 75 MG Tab PO SCH (09:00)
[2021-08-13] MEDS ORDERED: Metoprolol Tartrate 25 MG Tab PO SCH (09:00)
[2021-08-13] MEDS ORDERED: Rosuvastatin 10 MG Tab PO SCH (09:00)
[2021-08-13] MEDS ORDERED: Allopurinol 100 MG Tab PO SCH (09:00)
[2021-08-13] MEDS ORDERED: FLUoxetine 10 MG Cap PO SCH (09:00)
[2021-08-13] MEDS: Azithromycin 500 MG in Sodium Chloride 0.9% 250 ML IV SCH (09:30)
[2021-08-13] MEDS: Aspirin 325 MG Tab.EC PO SCH (11:30)
[2021-08-13] MEDS: Lutein/Minerals/Vitamins A, C & E Tab PO SCH (11:30)
[2021-08-13] MEDS: ALLOPURINOL 100 MG PO SCH (11:31)
[2021-08-13] MEDS: FLUOXETINE 20 MG PO SCH (11:32)
[2021-08-13] MEDS: CLOPIDOGREL 75 MG PO SCH (11:32)
[2021-08-13] MEDS: ROSUVASTATIN 40 MG PO SCH (11:33)
[2021-08-13] MEDS: METOPROLOL TARTRATE 25 MG PO SCH ×2 (11:34→20:19)
[2021-08-13] MEDS ORDERED: Glucagon,Human Recombinant 1 MG Vial IM PRN (12:48)
[2021-08-13] MEDS ORDERED: 50% Dextrose in Water 50 ML Syringe IVPUSH PRN (12:48)
[2021-08-13] MEDS ORDERED: Insulin Lispro 100 Unit/ML 3 ML KwikPen SUBCUT SCH (18:00)
[2021-08-13] MEDS ORDERED: metFORMIN 500 MG Tab.ER PO SCH (18:00)
[2021-08-13] MEDS: METFORMIN 750 MG PO SCH (18:13)
[2021-08-13] MEDS: cefTRIAXone 2 GM Vial IVPUSH SCH (20:14)
[2021-08-13] MEDS ORDERED: Acetaminophen 325 MG Tab PO PRN (21:02)
[2021-08-14] MEDS: guaiFENesin/Dextromethorphan 100-10 MG/5 ML Soln 5 ML Cup PO PRN ×2 (01:04→21:48)
[2021-08-14] MEDS: Albuterol/Ipratropium 3.0-0.5 MG/3 ML Neb Soln NEB PRN (01:34)
[2021-08-14 07:49] LABS: ANION GAP 13.6 mmol/L (5-15)
[2021-08-14] MEDS: Aspirin 325 MG Tab.EC PO SCH (08:50)
[2021-08-14] MEDS: Azithromycin 500 MG in Sodium Chloride 0.9% 250 ML IV SCH (08:50)
[2021-08-14] MEDS: Lutein/Minerals/Vitamins A, C & E Tab PO SCH (08:50)
[2021-08-14] MEDS: Sodium Chloride 0.9% 50 ML IV SCH (08:59)
[2021-08-14] MEDS: CLOPIDOGREL 75 MG PO SCH (09:01)
[2021-08-14] MEDS: ROSUVASTATIN 40 MG PO SCH (09:01)
[2021-08-14] MEDS: ALLOPURINOL 100 MG PO SCH (09:01)
[2021-08-14] MEDS: FLUOXETINE 20 MG PO SCH (09:02)
[2021-08-14] MEDS: METFORMIN 750 MG PO SCH (09:02)
[2021-08-14] MEDS: METOPROLOL TARTRATE 25 MG PO SCH (09:03)
[2021-08-14] MEDS ORDERED: Albuterol 0.083% 2.5 MG/3 ML Neb Soln NEB PRN (10:41)
[2021-08-14] MEDS: predniSONE 20 MG Tab PO SCH (10:45)
[2021-08-14] MEDS: Albuterol/Ipratropium 3.0-0.5 MG/3 ML Neb Soln NEB SCH ×3 (10:46→21:51)
[2021-08-14] MEDS: Metoprolol Tartrate 25 MG Tab PO SCH (21:48)
[2021-08-14] MEDS: Sodium Chloride 0.9% 10 ML Syringe FLUSH PRN (21:52)
[2021-08-14] MEDS: cefTRIAXone 2 GM Vial IVPUSH SCH (21:53)
[2021-08-15] MEDS: Albuterol/Ipratropium 3.0-0.5 MG/3 ML Neb Soln NEB SCH ×6 (05:45→22:12)
[2021-08-15 07:56] LABS: ANION GAP 13.8 mmol/L (5-15)
[2021-08-15] MEDS: predniSONE 20 MG Tab PO SCH (07:58)
[2021-08-15] MEDS: guaiFENesin/Dextromethorphan 100-10 MG/5 ML Soln 5 ML Cup PO PRN (07:58)
[2021-08-15] MEDS ORDERED: Azithromycin 250 MG Tab PO ONE (08:00)
[2021-08-15] MEDS: Allopurinol 100 MG Tab PO SCH (08:00)
[2021-08-15] MEDS: Lutein/Minerals/Vitamins A, C & E Tab PO SCH (08:00)
[2021-08-15] MEDS: Metoprolol Tartrate 25 MG Tab PO SCH ×2 (08:00→21:41)
[2021-08-15] MEDS: FLUoxetine 10 MG Cap PO SCH (08:00)
[2021-08-15] MEDS: Clopidogrel 75 MG Tab PO SCH (08:00)
[2021-08-15] MEDS: Aspirin 325 MG Tab.EC PO SCH (08:00)
[2021-08-15] MEDS: Rosuvastatin 10 MG Tab PO SCH (08:01)
[2021-08-15] MEDS ORDERED: metFORMIN 500 MG Tab.ER PO SCH (09:00)
[2021-08-15] MEDS ORDERED: predniSONE 20 MG Tab PO SCH (10:45)
[2021-08-15] MEDS ORDERED: predniSONE 20 MG Tab PO ONE (11:00)
[2021-08-15] MEDS: cefTRIAXone 2 GM Vial IVPUSH SCH (21:41)
[2021-08-16] MEDS: Albuterol/Ipratropium 3.0-0.5 MG/3 ML Neb Soln NEB SCH ×3 (01:45→07:48)
[2021-08-16] MEDS ORDERED: predniSONE 20 MG Tab PO SCH (08:00)
[2021-08-16] MEDS ORDERED: Azithromycin 500 MG in Sodium Chloride 0.9% 250 ML IV SCH (08:00)
[2021-08-16] MEDS ORDERED: METFORMIN 750 MG PO SCH (09:00)
[2021-08-16] MEDS: Sodium Chloride 0.9% 50 ML IV SCH (09:05)
[2021-08-16] MEDS: Rosuvastatin 10 MG Tab PO SCH (09:08)
[2021-08-16] MEDS: Metoprolol Tartrate 25 MG Tab PO SCH (09:09)
[2021-08-16] MEDS: FLUoxetine 10 MG Cap PO SCH (09:09)
[2021-08-16] MEDS: Clopidogrel 75 MG Tab PO SCH (09:09)
[2021-08-16] MEDS: Lutein/Minerals/Vitamins A, C & E Tab PO SCH (09:09)
[2021-08-16] MEDS: Allopurinol 100 MG Tab PO SCH (09:09)
[2021-08-16] MEDS: Aspirin 325 MG Tab.EC PO SCH (09:09)
== END 2021-08-16 10:10 | disposition swing bed (61) | DRG 193 ==
LOC: KA.ED 17:29 → KA.MS 20:34 → OBSVTOIN 08-13 09:00
PROVIDERS: ADMIT Nurse Practitioner Family; ATTEND Family Medicine
DX: J18.9 Pneumonia, unspecified organism (principal); Z51.5 Encounter for palliative care; J96.01 Acute respiratory failure with hypoxia; Z88.1 Allergy status to other antibiotic agents; Z79.84 Long term (current) use of oral hypoglycemic drugs; Z79.02 Long term (current) use of antithrombotics/antiplatelets; C34.2 Malignant neoplasm of middle lobe, bronchus or lung; C34.11 Malignant neoplasm of upper lobe, right bronchus or lung; H54.7 Unspecified visual loss; Z66 Do not resuscitate; E78.00 Pure hypercholesterolemia, unspecified; I10 Essential (primary) hypertension; R53.81 Other malaise; I65.23 Occlusion and stenosis of bilateral carotid arteries; E78.5 Hyperlipidemia, unspecified; E11.9 Type 2 diabetes mellitus without complications; R91.8 Other nonspecific abnormal finding of lung field; R91.1 Solitary pulmonary nodule; M10.9 Gout, unspecified; M19.90 Unspecified osteoarthritis, unspecified site; F32.A Depression, unspecified; E11.22 Type 2 diabetes mellitus with diabetic chronic kidney disease; F41.9 Anxiety disorder, unspecified; E66.9 Obesity, unspecified; I12.9 Hypertensive chronic kidney disease with stage 1 through stage 4 chronic kidney disease, or unspecified chronic kidney disease; N18.30 Chronic kidney disease, stage 3 unspecified; I25.10 Atherosclerotic heart disease of native coronary artery without angina pectoris; Z95.1 Presence of aortocoronary bypass graft; Z79.01 Long term (current) use of anticoagulants; Z95.2 Presence of prosthetic heart valve; Z79.82 Long term (current) use of aspirin; Z86.73 Personal history of transient ischemic attack (TIA), and cerebral infarction without residual deficits; Z79.899 Other long term (current) drug therapy; Z79.52 Long term (current) use of systemic steroids; Z79.4 Long term (current) use of insulin; Z68.35 Body mass index [BMI] 35.0-35.9, adult; Z90.49 Acquired absence of other specified parts of digestive tract; Z87.19 Personal history of other diseases of the digestive system; Z98.890 Other specified postprocedural states; Z90.89 Acquired absence of other organs; Z79.2 Long term (current) use of antibiotics
CPT/HCPCS: 36415; 71045; 71046; 80048; 80053; 82947; 83605; 85025; 94640; 96374; 96375; 97161-GP; 99284; 99285-25; A9270-GY; G0378; J0456; J0696; J1815-GY; J7030; J7050; J7512; J7620-GY

== ENCOUNTER 2021-08-16 09:55 | Inpatient (IN) | payer MEDICARE, BC ==
[2021-08-16] MEDS ORDERED: 50% Dextrose in Water 50 ML Syringe IVPUSH PRN (10:21)
[2021-08-16] MEDS ORDERED: Sodium Chloride 0.9% 50 ML IV SCH (10:21)
[2021-08-16] MEDS ORDERED: Fluticasone NASAL Spray 16 GM Bottle NAS PRN ×2 (10:21→10:28)
[2021-08-16] MEDS ORDERED: Glucagon,Human Recombinant 1 MG Vial IM PRN (10:21)
[2021-08-16] MEDS ORDERED: LORazepam 0.5 MG Tab PO PRN ×2 (10:21→10:28)
[2021-08-16] MEDS ORDERED: Sodium Chloride 0.9% 10 ML Syringe FLUSH PRN ×2 (10:21)
[2021-08-16] MEDS ORDERED: Albuterol 0.083% 2.5 MG/3 ML Neb Soln NEB PRN (10:21)
[2021-08-16] MEDS ORDERED: Acetaminophen 325 MG Tab PO PRN (10:21)
[2021-08-16] MEDS: Albuterol/Ipratropium 3.0-0.5 MG/3 ML Neb Soln NEB SCH ×4 (11:10→23:02)
[2021-08-16] MEDS: guaiFENesin 600 MG Tab.ER PO SCH ×2 (11:20→20:41)
[2021-08-16] MEDS: cefTRIAXone 2 GM Vial IVPUSH SCH (20:40)
[2021-08-16] MEDS: Metoprolol Tartrate 25 MG Tab PO SCH (20:41)
[2021-08-16] MEDS ORDERED: Metoprolol Tartrate 25 MG Tab PO SCH (21:00)
[2021-08-17] MEDS: Albuterol/Ipratropium 3.0-0.5 MG/3 ML Neb Soln NEB SCH ×6 (03:42→23:40)
[2021-08-17] MEDS ORDERED: predniSONE 20 MG Tab PO SCH (08:00)
[2021-08-17] MEDS: Rosuvastatin 10 MG Tab PO SCH (08:28)
[2021-08-17] MEDS: Multivitamins with Minerals/Iron/Folic Acid/Lycopene Tab PO SCH (08:29)
[2021-08-17] MEDS: guaiFENesin 600 MG Tab.ER PO SCH ×2 (08:29→23:40)
[2021-08-17] MEDS: predniSONE 20 MG Tab PO SCH (08:29)
[2021-08-17] MEDS: Aspirin 325 MG Tab.EC PO SCH (08:30)
[2021-08-17] MEDS: Allopurinol 100 MG Tab PO SCH (08:30)
[2021-08-17] MEDS: Clopidogrel 75 MG Tab PO SCH (08:30)
[2021-08-17] MEDS: FLUoxetine 10 MG Cap PO SCH (08:30)
[2021-08-17] MEDS: METFORMIN 750 MG PO SCH (08:32)
[2021-08-17] MEDS: Metoprolol Tartrate 25 MG Tab PO SCH ×2 (08:32→23:40)
[2021-08-17] MEDS ORDERED: Allopurinol 100 MG Tab PO SCH (09:00)
[2021-08-17] MEDS ORDERED: Clopidogrel 75 MG Tab PO SCH (09:00)
[2021-08-17] MEDS ORDERED: metFORMIN 500 MG Tab.ER PO SCH (09:00)
[2021-08-17] MEDS ORDERED: Non-Formulary Medication 1 Each (Fluoxetine Hcl [Prozac] 20 MG Capsule) PO SCH (09:00)
[2021-08-17] MEDS ORDERED: Lutein/Minerals/Vitamins A, C & E Tab PO SCH (09:00)
[2021-08-17] MEDS ORDERED: Non-Formulary Medication 1 Each (Rosuvastatin Calcium [Crestor] 40 MG Tablet) PO SCH (09:00)
[2021-08-17] MEDS ORDERED: Non-Formulary Medication 1 Each (Aspirin [Aspirin] 325 MG Tablet) PO SCH (09:00)
[2021-08-17] MEDS: cefTRIAXone 2 GM Vial IVPUSH SCH (23:40)
[2021-08-18] MEDS: Albuterol/Ipratropium 3.0-0.5 MG/3 ML Neb Soln NEB SCH ×6 (03:45→22:36)
[2021-08-18] MEDS: Multivitamins with Minerals/Iron/Folic Acid/Lycopene Tab PO SCH (08:22)
[2021-08-18] MEDS: predniSONE 20 MG Tab PO SCH (08:22)
[2021-08-18] MEDS: Clopidogrel 75 MG Tab PO SCH (08:22)
[2021-08-18] MEDS: FLUoxetine 10 MG Cap PO SCH (08:22)
[2021-08-18] MEDS: Aspirin 325 MG Tab.EC PO SCH (08:22)
[2021-08-18] MEDS: Allopurinol 100 MG Tab PO SCH (08:22)
[2021-08-18] MEDS: Metoprolol Tartrate 25 MG Tab PO SCH ×2 (08:23→20:05)
[2021-08-18] MEDS: guaiFENesin 600 MG Tab.ER PO SCH ×2 (08:23→20:05)
[2021-08-18] MEDS: METFORMIN 750 MG PO SCH (08:23)
[2021-08-18] MEDS: Rosuvastatin 10 MG Tab PO SCH (08:23)
[2021-08-18] MEDS: cefTRIAXone 2 GM Vial IVPUSH SCH (20:05)
[2021-08-19] MEDS: Albuterol/Ipratropium 3.0-0.5 MG/3 ML Neb Soln NEB SCH ×5 (05:05→19:28)
[2021-08-19] MEDS: Rosuvastatin 10 MG Tab PO SCH (08:00)
[2021-08-19] MEDS: FLUoxetine 10 MG Cap PO SCH (08:00)
[2021-08-19] MEDS: Multivitamins with Minerals/Iron/Folic Acid/Lycopene Tab PO SCH (08:00)
[2021-08-19] MEDS: Clopidogrel 75 MG Tab PO SCH (08:00)
[2021-08-19] MEDS: Aspirin 325 MG Tab.EC PO SCH (08:00)
[2021-08-19] MEDS: guaiFENesin 600 MG Tab.ER PO SCH ×2 (08:00→20:33)
[2021-08-19] MEDS: Allopurinol 100 MG Tab PO SCH (08:00)
[2021-08-19] MEDS: METFORMIN 750 MG PO SCH (08:00)
[2021-08-19] MEDS: Metoprolol Tartrate 25 MG Tab PO SCH ×2 (08:01→20:32)
[2021-08-19] MEDS: predniSONE 20 MG Tab PO SCH (08:01)
[2021-08-20] MEDS: Albuterol/Ipratropium 3.0-0.5 MG/3 ML Neb Soln NEB SCH ×3 (01:47→06:36)
[2021-08-20] MEDS: Metoprolol Tartrate 25 MG Tab PO SCH ×2 (08:47→20:00)
[2021-08-20] MEDS: predniSONE 20 MG Tab PO SCH (08:48)
[2021-08-20] MEDS: guaiFENesin 600 MG Tab.ER PO SCH ×2 (08:49→19:59)
[2021-08-20] MEDS: Rosuvastatin 10 MG Tab PO SCH (08:49)
[2021-08-20] MEDS: Multivitamins with Minerals/Iron/Folic Acid/Lycopene Tab PO SCH (08:49)
[2021-08-20] MEDS: Allopurinol 100 MG Tab PO SCH (08:49)
[2021-08-20] MEDS: Aspirin 325 MG Tab.EC PO SCH (08:49)
[2021-08-20] MEDS: FLUoxetine 10 MG Cap PO SCH (08:49)
[2021-08-20] MEDS: METFORMIN 750 MG PO SCH (08:49)
[2021-08-20] MEDS: Clopidogrel 75 MG Tab PO SCH (08:49)
[2021-08-20] MEDS ORDERED: Albuterol/Ipratropium 3.0-0.5 MG/3 ML Neb Soln NEB PRN (09:26)
[2021-08-21] MEDS: predniSONE 20 MG Tab PO SCH (08:32)
[2021-08-21] MEDS: Metoprolol Tartrate 25 MG Tab PO SCH ×2 (08:32→20:59)
[2021-08-21] MEDS: Clopidogrel 75 MG Tab PO SCH (08:33)
[2021-08-21] MEDS: Allopurinol 100 MG Tab PO SCH (08:33)
[2021-08-21] MEDS: FLUoxetine 10 MG Cap PO SCH (08:33)
[2021-08-21] MEDS: guaiFENesin 600 MG Tab.ER PO SCH ×2 (08:33→20:59)
[2021-08-21] MEDS: Aspirin 325 MG Tab.EC PO SCH (08:33)
[2021-08-21] MEDS: Multivitamins with Minerals/Iron/Folic Acid/Lycopene Tab PO SCH (08:34)
[2021-08-21] MEDS: Rosuvastatin 10 MG Tab PO SCH (08:34)
[2021-08-21] MEDS: METFORMIN 750 MG PO SCH (08:35)
[2021-08-22] MEDS: METFORMIN 750 MG PO SCH (08:17)
[2021-08-22] MEDS: guaiFENesin 600 MG Tab.ER PO SCH ×2 (08:17→20:54)
[2021-08-22] MEDS: predniSONE 20 MG Tab PO SCH (08:17)
[2021-08-22] MEDS: Clopidogrel 75 MG Tab PO SCH (08:17)
[2021-08-22] MEDS: Multivitamins with Minerals/Iron/Folic Acid/Lycopene Tab PO SCH (08:18)
[2021-08-22] MEDS: Aspirin 325 MG Tab.EC PO SCH (08:18)
[2021-08-22] MEDS: Allopurinol 100 MG Tab PO SCH (08:18)
[2021-08-22] MEDS: FLUoxetine 10 MG Cap PO SCH (08:18)
[2021-08-22] MEDS: Metoprolol Tartrate 25 MG Tab PO SCH ×2 (08:19→20:55)
[2021-08-22] MEDS: Rosuvastatin 10 MG Tab PO SCH (08:21)
[2021-08-23] MEDS: guaiFENesin 600 MG Tab.ER PO SCH ×2 (08:07→21:07)
[2021-08-23] MEDS: Rosuvastatin 10 MG Tab PO SCH (08:07)
[2021-08-23] MEDS: FLUoxetine 10 MG Cap PO SCH (08:07)
[2021-08-23] MEDS: METFORMIN 750 MG PO SCH (08:07)
[2021-08-23] MEDS: Aspirin 325 MG Tab.EC PO SCH (08:07)
[2021-08-23] MEDS: Clopidogrel 75 MG Tab PO SCH (08:08)
[2021-08-23] MEDS: predniSONE 20 MG Tab PO SCH (08:08)
[2021-08-23] MEDS: Multivitamins with Minerals/Iron/Folic Acid/Lycopene Tab PO SCH (08:08)
[2021-08-23] MEDS: Allopurinol 100 MG Tab PO SCH (08:08)
[2021-08-23] MEDS: Metoprolol Tartrate 25 MG Tab PO SCH ×2 (08:09→21:06)
[2021-08-24] MEDS: Rosuvastatin 10 MG Tab PO SCH (08:06)
[2021-08-24] MEDS: METFORMIN 750 MG PO SCH (08:06)
[2021-08-24] MEDS: Metoprolol Tartrate 25 MG Tab PO SCH (08:07)
[2021-08-24] MEDS: Allopurinol 100 MG Tab PO SCH (08:07)
[2021-08-24] MEDS: Clopidogrel 75 MG Tab PO SCH (08:07)
[2021-08-24] MEDS: FLUoxetine 10 MG Cap PO SCH (08:07)
[2021-08-24] MEDS: guaiFENesin 600 MG Tab.ER PO SCH (08:07)
[2021-08-24] MEDS: Multivitamins with Minerals/Iron/Folic Acid/Lycopene Tab PO SCH (08:07)
[2021-08-24] MEDS: Aspirin 325 MG Tab.EC PO SCH (08:07)
[2021-08-24] MEDS: predniSONE 20 MG Tab PO SCH (08:08)
== END 2021-08-24 13:30 | disposition home or self-care (01) | DRG 947 ==
LOC: KA.MS 10:21
PROVIDERS: ADMIT Nurse Practitioner Family; ATTEND Nurse Practitioner Family
DX: R53.81 Other malaise (principal); J18.9 Pneumonia, unspecified organism; I25.10 Atherosclerotic heart disease of native coronary artery without angina pectoris; N18.30 Chronic kidney disease, stage 3 unspecified; E11.22 Type 2 diabetes mellitus with diabetic chronic kidney disease; M19.90 Unspecified osteoarthritis, unspecified site; M10.9 Gout, unspecified; F32.A Depression, unspecified; I65.23 Occlusion and stenosis of bilateral carotid arteries; R91.8 Other nonspecific abnormal finding of lung field; E78.5 Hyperlipidemia, unspecified; I12.9 Hypertensive chronic kidney disease with stage 1 through stage 4 chronic kidney disease, or unspecified chronic kidney disease; R06.2 Wheezing; E78.00 Pure hypercholesterolemia, unspecified; E66.9 Obesity, unspecified; Z96.659 Presence of unspecified artificial knee joint; F41.9 Anxiety disorder, unspecified; Z66 Do not resuscitate; Z86.73 Personal history of transient ischemic attack (TIA), and cerebral infarction without residual deficits; Z95.1 Presence of aortocoronary bypass graft; Z88.1 Allergy status to other antibiotic agents; Z79.82 Long term (current) use of aspirin; Z79.84 Long term (current) use of oral hypoglycemic drugs; Z79.899 Other long term (current) drug therapy; Z79.01 Long term (current) use of anticoagulants; Z95.2 Presence of prosthetic heart valve; Z68.27 Body mass index [BMI] 27.0-27.9, adult
CPT/HCPCS: 94640; 97110-GP; 97161-GP; A9270-GY; J0696; J7512; J7620-GY